=== PATIENT | female | born 1990 | race Caucasian/White ===

== ENCOUNTER 2019-10-25 21:41 | Emergency (ER) | payer SELFPAY ==
[~2019-10-25] VITALS: Ht 165.1 cm; Wt 78.0 kg
[2019-10-26] MEDS ORDERED: IBUPROFEN 600MG TABLET PO STA (02:50)
[2019-10-26 05:32] VITALS: BP 119/67
== END 2019-10-26 05:36 | disposition home or self-care (01) ==
LOC: ER 21:41
DX: R07.89 Other chest pain (principal); Z98.890 Other specified postprocedural states
CPT/HCPCS: 71045; 81025; 99283

== ENCOUNTER 2020-02-15 10:56 | Emergency (ER) | payer SELFPAY ==
[2020-02-15] MEDS ORDERED: IBUPROFEN 600MG TABLET PO ONE (11:45)
[2020-02-15 13:01] VITALS: BP 119/60
== END 2020-02-15 13:02 | disposition home or self-care (01) ==
LOC: ER 10:56
DX: J02.8 Acute pharyngitis due to other specified organisms (principal); B97.89 Other viral agents as the cause of diseases classified elsewhere; Z98.890 Other specified postprocedural states
CPT/HCPCS: 87070; 87430; 99283

== ENCOUNTER 2020-07-20 14:52 | Emergency (ER) | payer SELFPAY ==
[~2020-07-20] VITALS: Ht 167.6 cm; Wt 85.0 kg
[2020-07-20] MEDS ORDERED: ACETAMINOPHEN 325MG TABLET PO ONE (15:15)
[2020-07-20 15:43] LABS: CLARITY URINE CLEAR (CLEAR); COLOR URINE YELLOW (YELLOW); KETONES URINE NEGATIVE (NEGATIVE); LEUKOCYTE ESTERASE URINE TRACE (NEGATIVE); NITRITE URINE NEGATIVE (NEGATIVE); OCCULT BLOOD URINE TRACE (NEGATIVE); PH URINE 5.5 (4.5-8.0); PROTEIN URINE NEGATIVE (NEGATIVE); SPECIFIC GRAVITY URINE 1.029 (1.005-1.030); UROBILINOGEN URINE 0.2 E.U./dL (0.2-1.0)
[2020-07-20 15:56] VITALS: BP 133/86
== END 2020-07-20 15:57 | disposition home or self-care (01) ==
LOC: ER 15:19
DX: Z20.818 Contact with and (suspected) exposure to other bacterial communicable diseases (principal); R30.0 Dysuria
CPT/HCPCS: 71045; 81003; 81025; 87635; 99284; C9803